=== PATIENT | female | born 1975 | race Asian ===

== ENCOUNTER 2024-12-19 12:55 | Emergency (ER) | payer MEDICAID, OTHER ==
[~2024-12-19] VITALS: Ht 162.6 cm; Wt 52.3 kg
[2024-12-19 13:02] VITALS: BP 97/62; PULSE 68; RESP 16; TEMP 98.1; O2SAT 98
[2024-12-19 13:46] LABS: APPEARANCE,URINE CLEAR (CLEAR); BILIRUBIN,URINE NEGATIVE (NEGATIVE); COLOR,URINE LIGHT YELLOW (YELLOW); GLUCOSE, URINE (UA) NEGATIVE (NEGATIVE); KETONES,URINE NEGATIVE (NEGATIVE); LEUKOCYTE ESTERASE ,URINE MODERATE (NEGATIVE); NITRATE,URINE NEGATIVE (NEGATIVE); OCCULT BLOOD,URINE NEGATIVE (NEGATIVE); PH,URINE 6.5 (5.0-8.0); PROTEIN,URINE TRACE mg/dL (NEGATIVE); SPECIFIC GRAVITIY, URINE 1.028 (1.003-1.030); UROBILINOGEN,URINE <=1.0 mg/dL (<=1.0)
[2024-12-19 13:54] LABS: RBC,URINE None Seen /HPF (0-2)
[2024-12-19 13:55] LABS: BACTERIA,URINE None Seen /HPF (None Seen); SQUAMOUS EPITHELIAL CELL,UR Few /LPF (None Seen)
[2024-12-19] MEDS ORDERED: CEPH-558 PO (15:54)
[2024-12-19] MEDS: CEPHALEXIN MONOHYDRATE 500 MG CAPSULE PO ONE (15:59)
== END 2024-12-19 16:03 | disposition home or self-care (01) ==
LOC: EMS 12:55
DX: N39.0 Urinary tract infection, site not specified (principal)
CPT/HCPCS: 81001; 87086; 99283

== ENCOUNTER 2025-02-11 13:07 | Emergency (ER) | payer MEDICAID, OTHER ==
[~2025-02-11] VITALS: Ht 162.6 cm; Wt 54.5 kg
[2025-02-11 13:14] VITALS: BP 110/69; PULSE 64; RESP 18; TEMP 98; O2SAT 98
[2025-02-11 14:03] LABS: APPEARANCE,URINE CLEAR (CLEAR); BILIRUBIN,URINE NEGATIVE (NEGATIVE); COLOR,URINE YELLOW (YELLOW); GLUCOSE, URINE (UA) TRACE mg/dL (NEGATIVE); LEUKOCYTE ESTERASE ,URINE SMALL (NEGATIVE); NITRATE,URINE NEGATIVE (NEGATIVE); OCCULT BLOOD,URINE SMALL (NEGATIVE); PROTEIN,URINE TRACE mg/dL (NEGATIVE); SPECIFIC GRAVITIY, URINE 1.033 (1.003-1.030); UROBILINOGEN,URINE <=1.0 mg/dL (<=1.0)
[2025-02-11 14:19] LABS: BACTERIA,URINE None Seen /HPF (None Seen); RBC,URINE None Seen /HPF (0-2); SQUAMOUS EPITHELIAL CELL,UR Few /LPF (None Seen); WBC,URINE 0-2 /HPF (0-5)
== END 2025-02-11 14:41 | disposition home or self-care (01) ==
LOC: EMS 13:10
DX: R30.0 Dysuria (principal); F17.210 Nicotine dependence, cigarettes, uncomplicated
CPT/HCPCS: 81001; 99283; 99406

== ENCOUNTER 2025-08-25 11:35 | Emergency (ER) | payer OTHER ==
[~2025-08-25] VITALS: Ht 162.6 cm; Wt 52.3 kg
[2025-08-25 11:37] VITALS: TEMP 98.1
[2025-08-25 12:36] LABS: PLATELET COUNT (AUTO) 150 K/uL (150-450); RED BLOOD CELL COUNT(AUTO) 4.18 MIL/uL (4.00-5.20); RED CELL DISTRIBUTION WIDTH 17.4 % (11.5-14.5); WHITE BLOOD COUNT (AUTO) 3.1 K/uL (4.5-11.0)
[2025-08-25 12:54] LABS: CALCIUM, TOTAL 8.9 mg/dL (8.8-10.5); CREATININE 0.56 mg/dL (0.60-1.30); GLOMERULAR FILTR. RATE CALC > 60 mL/min (>60); GLUCOSE,RANDOM 89 mg/dL (70-110); SODIUM SERUM 142 mmol/L (136-145); UREA NITROGEN, BLOOD 9 mg/dL (7-18)
[2025-08-25 13:00] LABS: ASPARTATE AMINOTRANSFERASE 17 U/L (15-37); HCG,QUANTITATIVE < 1 mIU/mL (0-6); TOTAL PROTEIN, SERUM 6.5 g/dL (6.4-8.2)
[2025-08-25 13:37] LABS: COVID AG,FIA SOURCE NASAL SWAB
[2025-08-25] MEDS: ACETAMINOPHEN 325 MG TABLET PO ONE (13:38)
[2025-08-25 14:07] LABS: SARS-COV2 (COVID) ANTIGEN,FIA Negative (Negative)
[2025-08-25 14:09] LABS: INFLUENZA TYPE A NEGATIVE FOR TYPE A (NEGATIVE); INFLUENZA TYPE B NEGATIVE FOR TYPE B (NEGATIVE)
[2025-08-25 15:04] LABS: APPEARANCE,URINE HAZY (CLEAR); GLUCOSE, URINE (UA) NEGATIVE (NEGATIVE); LEUKOCYTE ESTERASE ,URINE SMALL (NEGATIVE); NITRATE,URINE NEGATIVE (NEGATIVE); OCCULT BLOOD,URINE NEGATIVE (NEGATIVE); SPECIFIC GRAVITIY, URINE 1.019 (1.003-1.030)
[2025-08-25 15:22] LABS: SQUAMOUS EPITHELIAL CELL,UR Few /LPF (None Seen); YEAST,URINE Rare /HPF (None Seen)
[2025-08-25] MEDS: FLUCONAZOLE 150 MG TABLET PO ONE (16:23)
[2025-08-25 16:27] VITALS: BP 106/58; PULSE 72; RESP 18; O2SAT 97
== END 2025-08-25 16:28 | disposition home or self-care (01) ==
LOC: EMS 11:35
DX: B37.31 Acute candidiasis of vulva and vagina (principal); R30.0 Dysuria; F31.9 Bipolar disorder, unspecified; F17.210 Nicotine dependence, cigarettes, uncomplicated; N89.8 Other specified noninflammatory disorders of vagina; Z98.890 Other specified postprocedural states; Z20.822 Contact with and (suspected) exposure to COVID-19
CPT/HCPCS: 80048; 80076; 81001; 83690; 84702; 85025; 87804; 93005; 99284